=== PATIENT | male | born 1975 | race Hispanic/Latino ===

== ENCOUNTER 2021-02-23 21:16 | Emergency (ER) | payer BC ==
[~2021-02-23] VITALS: Ht 167.6 cm; Wt 70.8 kg
[2021-02-23] MEDS ORDERED: ALBUTEROL0.63 MG/3 NEB (21:53)
== END 2021-02-23 22:31 | disposition home or self-care (01) ==
LOC: ER 21:51
DX: R50.9 Fever, unspecified (principal); R06.02 Shortness of breath; R05 Cough; U07.1 COVID-19
CPT/HCPCS: 99282

== ENCOUNTER 2022-02-15 18:08 | Emergency (ER) | payer BC ==
[~2022-02-15] VITALS: Ht 167.6 cm; Wt 70.8 kg
[~2022-02-15 18:08] MED LIST: ALBUTEROL0.63 MG/3 NEB
== END 2022-02-15 20:15 | disposition home or self-care (01) ==
LOC: ER 18:15
DX: G51.0 Bell's palsy (principal)
CPT/HCPCS: 70450; 99283